=== PATIENT | female | born 2000 | race Caucasian/White ===

== ENCOUNTER 2020-05-12 01:52 | Emergency (ER) | payer BC ==
[2020-05-12] MEDS ORDERED: diphenhydrAMINE 50 MG Cap PO ONE (02:17)
[2020-05-12] MEDS ORDERED: predniSONE 20 MG Tab PO ONE (02:24)
[2020-05-12] MEDS ORDERED: diphenhydrAMINE 25 MG Cap ONE (02:30)
[2020-05-12] MEDS ORDERED: predniSONE 10 MG Tab ONE (02:30)
--- NOTE | 2020-05-12 02:45 | EDM.PDOC ---
ED HPI GENERAL MEDICAL PROBLEM - General Chief Complaint: Skin Complaint Stated Complaint: Rash Time Seen by Provider: 05/12/20 02:20 Source of Information: Reports: Patient History Limitations: Reports: No Limitations - History of Present Illness INITIAL COMMENTS - FREE TEXT/NARRATIVE: Started with rash tonght. NOthing unusual for supper. Use dove soap. Rash appears to be hives Onset: Today Onset Date: 05/11/20 Onset Time: 20:00 Duration: Hour(s): Location: Reports: Chest, Abdomen, Back, Upper Extremity, Left, Upper Extremity, Right Severity: Moderate Improves with: Reports: None Associated Symptoms: Reports: No Other Symptoms. 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) Past Medical History - Past Health History Medical/Surgical History: Denies Medical/Surgical History Social & Family History - Tobacco Use Smoking Status *Q: Never Smoker - Alcohol Use Days Per Week of Alcohol Use: 3 Number of Drinks Per Day: 4 Total Drinks Per Week: 12 - Recreational Drug Use Recreational Drug Use: No ED ROS GENERAL - Review of Systems Review Of Systems: See Below Constitutional: Denies: Fever, Chills, Malaise HEENT: Reports: Other (Swelling of eyelids) Respiratory: Denies: Shortness of Breath, Wheezing Cardiovascular: Denies: Chest Pain, Lightheadedness, Palpitations GI/Abdominal: Denies: Abdominal Pain, Nausea, Vomiting ED EXAM, SKIN/RASH Exam: See Below Exam Limited By: No Limitations General Appearance: Alert, WD/WN, No Apparent Distress Ears: Normal External Exam, Normal Canal, Normal TMs Nose: Normal Inspection, Normal Mucosa Throat/Mouth: Normal Inspection, Normal Lips, Normal Teeth, Normal Gums, Normal Oropharynx, No Airway Compromise Head: Atraumatic, Normocephalic Neck: Normal Inspection, Supple, Non-Tender, Full Range of Motion Respiratory/Chest: No Respiratory Distress, Lungs Clear GI/Abdominal: Normal Bowel Sounds, Soft, Non-Tender Back Exam: Normal Inspection, Full Range of Motion Extremities: Normal Range of Motion, Non-Tender Neurological: Alert, Oriented, Normal Cognition, Normal Gait Skin: Warm, Dry, Rash, Other (Urticarial rash to trunk and arms) Characteristics: Maculopapular, Patchy, Urticarial Associated features: No: Warmth, Swelling, Induration, Weeping Course - Vital Signs Last Recorded V/S: Last Vital Signs Temp 98.3 F 05/12/20 02:05 Pulse 63 05/12/20 02:05 Resp 16 05/12/20 02:05 BP 116/68 05/12/20 02:05 Pulse Ox 99 05/12/20 02:05 - Orders/Labs/Meds Meds: Medications Discontinued Medications Generic Name Dose Route Start Last Admin Trade Name Alverto RODRIGUEZ Reason Stop Dose Admin Diphenhydramine HCl 50 mg 05/12/20 02:17 05/12/20 02:18 Benadryl PO 05/12/20 02:18 50 mg ONETIME ONE Administration Prednisone 40 mg 05/12/20 02:24 05/12/20 02:28 Prednisone PO 05/12/20 02:25 40 mg ONETIME ONE Administration - Re-Assessments/Exams Free Text/Narrative Re-Assessment/Exam: 05/12/20 10:34 Patient treated with Benadryl and prednisone with mild improvement. NO SOB or throat swelling while in ED Departure - Departure Time of Disposition: 02:40 Disposition: Home, Self-Care 01 Condition: Good Clinical Impression: Hives of unknown origin - Discharge Information *PRESCRIPTION DRUG MONITORING PROGRAM REVIEWED*: Not Applicable *COPY OF PRESCRIPTION DRUG MONITORING REPORT IN PATIENT [place]: Not Applicable Instructions: Hives Referrals: PCP,None [Primary Care Provider] - Forms: ED Department Discharge Additional Instructions: Return for increasing redness, swelling or tightness in throat, Shortness of breathing or worsening rash Benadryl 25 mg 1 tablet every 4-6 hours as needed for redness or itching Prednisone 10 mg tablets 4 tablets daily starting tomorrow afternoon for 3 days Follow up in clinic if rash recurs or return to ED as needed Sepsis Event Note (ED) - Evaluation Sepsis Screening Result: No Definite Risk - Focused Exam Vital Signs: Vital Signs Temp Pulse Resp BP Pulse Ox 05/12/20 02:05 98.3 F 63 16 116/68 99
== END 2020-05-12 02:50 | disposition home or self-care (01) ==
LOC: LB.ED 01:52
DX: L50.9 Urticaria, unspecified (principal)
CPT/HCPCS: 99282; A9270; J7512